=== PATIENT | female | born 1965 | race Caucasian/White ===

== ENCOUNTER 2020-08-05 04:46 | Day surgery (SDC) | payer BC, OTHER ==
[2020-08-04 14:11] VITALS: BMI 39.1
--- NOTE | 2020-08-05 15:28 | HP ---
History & Physical Update - History History: No Change (postmenopausal bleeding, obesity, endometrial polyp) - Physical Physical: No Change - Assessment Assessment: No Change - Plan Plan: No Change (Hysteroscopy, D&C, polypectomy.)
[2020-08-05] MEDS ORDERED: MIDAZOLAM HCL 2 MG/2 ML SINGLE DOSE VIAL ONE (15:41)
[2020-08-05] MEDS ORDERED: ceFAZolin SODIUM 1 GM VIAL IVPB ONE (15:45)
[2020-08-05] MEDS ORDERED: PROPOFOL 20 ML ONE ×2 (15:49→16:18)
[2020-08-05] MEDS ORDERED: PROMETHAZINE HCL 25 MG/1 ML VIAL IVPUSH PRN (15:56)
[2020-08-05] MEDS ORDERED: ONDANSETRON 4 MG/2 ML VIAL IVPUSH PRN (15:56)
[2020-08-05] MEDS ORDERED: LACTATED RINGERS SOLUTION 1,000 ML IV SCH (16:00)
--- NOTE | 2020-08-05 16:32 | OP ---
Operative Note - Note: Operative Date: 08/05/20 Pre-Operative Diagnosis: Postmenopausal bleeding, uterine polyp, morbid obesity Operation: Hysteroscopy, polypectomy, D&C Findings: Two uterine poylps Post-Operative Diagnosis: Same as Pre-op Surgeon: Melvin Landry Anesthesiologist/TELEPHONE TRIAGE NURSE: Orlando Winter Anesthesia: General Specimens Removed: Endometrial polyps, endometrial curettings Estimated Blood Loss (mls): 5 Blood Volume Replaced (mls): 0 Fluid Volume Replaced (mls): 1,000 Operative Report Dictated: Yes
--- NOTE | 2020-08-05 18:19 | OP ---
DATE OF OPERATION: 08/05/2020 PREOPERATIVE DIAGNOSIS: Postmenopausal bleeding, uterine polyps, morbid obesity. POSTOPERATIVE DIAGNOSIS: Postmenopausal bleeding, uterine polyps, morbid obesity. PROCEDURE: Hysteroscopy, polypectomy, dilation and curettage. SURGEON: Tomeka Lezama MD. ANESTHESIOLOGIST: Orlando Winter MD. ANESTHESIA: General anesthesia. COMPLICATIONS: None. ESTIMATED BLOOD LOSS: 5 mL. INTRAVENOUS FLUIDS: 1000 mL. PATHOLOGY: Endometrial polyps, endometrial curettings. FINDINGS: Examination under anesthesia revealed a small anteverted uterus, no pelvic or adnexal masses were palpable. Hysteroscopy revealed a mildly enlarged endometrial cavity with 2 uterine polyps. PROCEDURE: The patient was met preoperatively. Risks, benefits, and alternatives of surgery were discussed in detail. All questions were answered. The consent form was reviewed and discussed. The patient verbalized understanding and requested to proceed with the surgery. The patient was brought to the OR with the IV running. She was placed on a surgical table in the supine position. The general anesthesia was achieved with the LMA first, however it was later switched to endotracheal intubation. The patient was then placed in a dorsal lithotomy position using adjustable Huber stirrups. She was examined under anesthesia with the findings as described above. The timeout was conducted as per standard protocol. The patient was then prepped and draped in the usual sterile fashion. A weighted speculum was then introduced inside the vagina with good visualization of the cervix. The cervix was grasped with a single-toothed tenaculum. The cervical os was dilated to accommodate a size 23 Ravi dilator. A Symphion hysteroscope was advanced through the cervical canal and into the endometrial cavity. Two endometrial polyps were noted. A Symphion resectoscope was then used to completely excise the endometrial polyps. Once this was completed, the hysteroscope was removed. A sharp uterine curettage was performed, and all of the tissue was submitted to pathology. Good hemostasis was confirmed. The sponge, lap, and instrument counts were correct. The patient was returned to supine position. She was transferred to recovery room, in stable condition. TOMEKA LEZAMA M.D. [id number]
[2020-08-05 19:17] VITALS: BP 131/66; PULSE 101; TEMP 97.7
--- NOTE | 2020-08-07 11:56 | PATH ---
Surgical Pathology Report Patient Name: PETER WHITEHEAD [facility]. Rec. #: [id number] /Age/Gender: 1965 (Age: 55) / F Account: [id number] Location: [facility] SURGICAL Taken: 08/05/2020 Received: 08/06/2020 Reported: 08/07/2020 Physicians: Melvin Landry M.D. Specimen(s) Received A: ENDOMETRIAL CURETTINGS B: ENDOMETRIAL POLYPS Clinical History Endometrial polyp Final Diagnosis A. ENDOMETRIAL CURETTINGS, DILATION AND CURETTAGE: FRAGMENTS OF ENDOMETRIAL POLYP, FEW STRIPS OF ENDOMETRIAL GLANDS, FOCAL PAPILLARY SYNCYTIAL METAPLASIA, AND SCANT CERVICAL TISSUE. SEE PART B. B. ENDOMETRIAL POLYPS, HYSTEROSCOPIC RESECTION: FRAGMENTS OF ENDOMETRIAL POLYP WITH FOCAL SURFACE PAPILLARY SYNCYTIAL METAPLASIA. 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 Electronically Signed Colette Oneill M.D. Gross Description A. Received in formalin labeled "endometrial curettings" are multiple irregular fragments of pink-alexander and hemorrhagic soft tissue measuring 2 x 1 x 0.3 cm. Entire specimen is submitted in one cassette. B. Received in formalin labeled "endometrial polyps" are multiple irregular fragments of alexander soft tissue measuring 2 x 1.5 x 0.3 cm. Entire specimen is submitted in one cassette. MLRozZ/08/06/2020 rudi/08/06/2020
== END 2020-08-05 19:30 | disposition home or self-care (01) ==
LOC: JASU-SURG 04:46
PROVIDERS: ATTEND Obstetrics & Gynecology
PROC: 0UB98ZX Excision of Uterus, Via Natural or Artificial Opening Endoscopic, Diagnostic (ICD-10-PCS; principal; 2020-08-05 15:30)
PROC: 0UDB7ZX Extraction of Endometrium, Via Natural or Artificial Opening, Diagnostic (ICD-10-PCS; 2020-08-05 15:30)
DX: N95.0 Postmenopausal bleeding (principal); N84.0 Polyp of corpus uteri; E66.01 Morbid (severe) obesity due to excess calories; Z68.39 Body mass index [BMI] 39.0-39.9, adult
CPT/HCPCS: 86850; 86900; 86901; 88305-TC; 94760